=== PATIENT | female | born 1985 | race Caucasian/White ===

== ENCOUNTER 2017-12-31 02:06 | Emergency (ER) | payer BC ==
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
--- NOTE | 2018-01-01 17:48 | CT ---
EXAM DATE: 12/31/17 PATIENT'S AGE: 32 Patient: JOSELUIS HURD Facility: [place], [place] Site . Site : [id number] Study: CT Head [id number]/12/2018 3:28:17 AM Ordering Physician: Doctor Spence Final Report: INDICATION: Fall TECHNIQUE: CT head without contrast. COMPARISON: None available FINDINGS: There is artifact near the skullbase. The ventricles and sulci are within normal limits for the patient`s age. There is no mass effect or midline shift. There is no loss of garrido-white differentiation. There is no definite evidence of a gross acute intracranial hemorrhage. No acute calvarial fracture is seen. The visualized paranasal sinuses and mastoid air cells are clear. The visualized orbits are within normal limits. IMPRESSION: No evidence of a gross acute intracranial hemorrhage, mass effect or loss of garrido-white differentiation. Dictated by Arnav Ackerman MD @ 12/31/2017 4:06:18 AM Please note that all CT scans at this facility use dose modulation, iterative reconstruction, and/or weight-based dosing when appropriate to reduce radiation dose to as low as reasonably achievable. Dictated by: Arnav Ackerman MD @ 12/31/2017 04:06:24 (Electronic Signature) Report Signed by Proxy. JANAE
== END 2017-12-31 04:30 | disposition home or self-care (01) ==
LOC: MW.ED 02:06
DX: S06.9X9A Unspecified intracranial injury with loss of consciousness of unspecified duration, initial encounter (principal); W18.00XA Striking against unspecified object with subsequent fall, initial encounter
CPT/HCPCS: 70450; 70450-26; 99283; 99283-25

== ENCOUNTER 2021-11-23 01:24 | Emergency (ER) | payer OTHER ==
[2021-11-23] MEDS ORDERED: Sodium Chloride 0.9% 1,000 ML IV STA (01:26)
[2021-11-23 03:00] LABS: ACETAMINOPHEN <2.0 ug/mL; BLOOD UREA NITROGEN,BUN 10 mg/dL (7.0-18.0); CHLORIDE,CL 106 mmol/L (98-107); GLUCOSE RANDOM 96 mg/dL (74-106); POTASSIUM,K 4.2 mmol/L (3.5-5.1); SODIUM,NA 141 mmol/L (136-145)
[2021-11-23 03:02] LABS: ESTIMATED GFR 116 mL/min (>60)
[2021-11-23] MEDS ORDERED: Sodium Chloride 0.9% 1,000 ML IV SCH (03:15)
[2021-11-23 03:36] LABS: ACETAMINOPHEN <2.0 ug/mL
[2021-11-23 05:58] LABS: ACETAMINOPHEN <2.0 ug/mL
== END 2021-11-23 06:46 | disposition home or self-care (01) ==
LOC: MW.ED 01:24
DX: F10.129 Alcohol abuse with intoxication, unspecified (principal); Z20.822 Contact with and (suspected) exposure to COVID-19; Y90.6 Blood alcohol level of 120-199 mg/100 ml
CPT/HCPCS: 36415; 80053; 80143; 80179; 80305; 80307; 81001; 82550; 83605; 83735; 84443; 84703; 85025; 85610; 87635; 93005; 99285; J7030; U0002

== ENCOUNTER 2022-03-30 07:11 | Emergency (ER) | payer SELFPAY | END 2022-03-30 07:50 | LOC: MW.ED 07:11 | DX: Z02.89 Encounter for other administrative examinations (principal) | CPT/HCPCS: 99283 ==

== ENCOUNTER 2023-12-24 01:24 | Emergency (ER) | payer BC ==
[2023-12-24] MEDS: Ondansetron 4 MG Tab.DIS PO ONE (02:29)
[2023-12-24] MEDS: Penicillin V Potassium 500 MG Tab PO STA (03:22)
== END 2023-12-24 03:24 | disposition home or self-care (01) ==
LOC: MW.ED 01:24
DX: G89.11 Acute pain due to trauma (principal); K04.7 Periapical abscess without sinus; F17.210 Nicotine dependence, cigarettes, uncomplicated; Z79.899 Other long term (current) drug therapy
CPT/HCPCS: 99282; A9270; 99283